=== PATIENT | male | born 1995 | race Caucasian/White ===

== ENCOUNTER 2020-05-20 17:19 | Emergency (ER) | payer SELFPAY ==
[2020-05-20 17:33] VITALS: BP 133/84; PULSE 87; O2SAT 100
--- NOTE | 2020-05-20 17:42 | ERPHSYRPT ---
- History of Present Illness Time Seen by Provider: 05/20/20 17:30 Source: patient Exam Limitations: no limitations Patient Subjective Stated Complaint: pt reports visual and auditory hallucinations beginning approx 2 weeks ago, reports that he has bad thoughts, states he has insecurities that he thinks of often. pt reports that he keeps hearing the word "retard" in his head all day. pt also reports that he also sees a lot of "weird creepy shit, sometimes bugs" that he knows are not there. pt denies any suicidal or homicidal thoughts at this time. Triage Nursing Assessment: pt is aox3, tearful upon exam, pt covering face with his hands at this time, pt not forthcoming with answering questions of this nurse and doctor, pt afebrile, pt resps easy and non labored, cap refill < 3 seconds, radial pulses strong and equal, pt skin pink warm dry. Physician History: Patient is a 24-year-old male presents to our ED via EMS for evaluation of visual and auditory hallucinations. Symptoms started approximately 2 weeks ago. Symptoms have been ongoing. Patient states he feels insecure. Patient's visual hallucinations include seeing bugs. Patient states "I see creepy shit". There are specifics regarding the visual hallucinations. Patient states he hears a voice in his head saying "retarded". Patient denies homicidal suicidal ideation. Patient smokes marijuana denies other illicit drug use. Patient quit high school in his stacy year. Patient is unemployed. He lives with his parents. Patient states he plays video games in his spare time. Patient answers questions. However he is somewhat tearful. Patient puts his hands at his head presumably to cover his tears. Patient denies pain. No nausea no vomiting. No diarrhea. No rash. No fevers. Symptoms are mild to moderate in intensity. No specific worsening or improving factors. Patient voices no other complaints or concerns at this time. Timing/Duration: week(s) (2 weeks) Severity of Symptoms-Max: moderate Severity of Symptoms-Current: moderate Context related to: other Suicidal thoughts: other (Patient denies suicidal thoughts. No history of suicide per patient.) Associated Symptoms: denies symptoms, frustrated, hallucinating, No confused, No ingestion, No insomnia, No suicidal ideation Allergies/Adverse Reactions: No Known Drug Allergies Allergy (Verified 05/20/20 17:33) Hx Tetanus, Diphtheria Vaccination/Date Given: Yes Hx Influenza Vaccination/Date Given: No Hx Pneumococcal Vaccination/Date Given: No Immunizations Up to Date: Yes Travel Risk - International Travel Have you traveled outside of the country in past 3 weeks: No - Coronavirus Screening Are you exhibiting any of the following symptoms?: No Close contact with a COVID-19 positive Pt in past 14-21 Days: No - Past Medical History Pertinent Past Medical History: Yes GI Medical History: Hepatitis Psycho-Social History: Anxiety, Bipolar, Depression, Other Other Medical History: "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 - Past Surgical History Past Surgical History: No Other Surgical History: RT THUMB DISLOCATION/FX - Social History Smoking Status: Current every day smoker Exposure to second hand smoke: Yes Drug Use: none Patient Lives Alone: No - Review of Systems Constitutional: No Symptoms, No Fever, No Chills Eyes: No Symptoms Ears, Nose, & Throat: No Symptoms Respiratory: No Symptoms, No Cough, No Dyspnea Cardiac: No Symptoms, No Chest Pain, No Edema, No Syncope Abdominal/Gastrointestinal: No Symptoms, No Abdominal Pain, No Nausea, No Vomiting, No Diarrhea Genitourinary Symptoms: No Symptoms, No Dysuria Musculoskeletal: No Symptoms, No Back Pain, No Neck Pain Skin: No Symptoms, No Rash Neurological: No Symptoms, No Dizziness, No Focal Weakness, No Sensory Changes Psychological: No Symptoms Endocrine: No Symptoms Hematologic/Lymphatic: No Symptoms Immunological/Allergic: No Symptoms All Other Systems: Reviewed and Negative - Nursing Vital Signs Nursing Vital Signs: Initial Vital Signs Temperature 98.6 F 05/20/20 17:20 Pulse Rate 87 05/20/20 17:20 Respiratory Rate 20 05/20/20 17:20 Blood Pressure 133/84 05/20/20 17:20 O2 Sat by Pulse Oximetry 100 05/20/20 17:20 Pain Scale Pain Intensity 0 - Physical Exam General Appearance: no apparent distress Eyes, Ears, Nose, Throat Exam: normal ENT inspection, moist mucous membranes Neck Exam: normal inspection, non-tender, supple Respiratory Exam: normal breath sounds, lungs clear, No respiratory distress Cardiovascular Exam: regular rate/rhythm, No edema Gastrointestinal/Abdominal Exam: soft, No tenderness, No distention Extremities Exam: normal inspection, normal range of motion, No evidence of injury, No edema Current Suicidality: denies suicide plan Neurological Exam: alert, technology program manager II-XII nml as tested, oriented x 3 Behavior/Eye Contact/Speech: alert & cooperative, cooperative, normal speech, avoids eye contact Thoughts/Hallucinations: normal thought pattern, auditory hallucinations (Patient voices auditory hallucinations. Patient hears voices calling him "retired". Patient also sees nonspecific observance is such as things flying around his visual field.) Skin Exam: normal color, warm, dry, No rash SpO2 Interpretation: normal SpO2: 100 O2 Delivery: Room Air - Course Nursing assessment & vital signs reviewed: Yes Ordered Tests: Active Orders 24 hr Category Date Time Status ACETAMINOPHEN Stat Lab 05/20/20 17:23 Ordered CBC W DIFF Stat Lab 05/20/20 17:23 Ordered CMP Stat Lab 05/20/20 17:23 Ordered ETHYL ALCOHOL Stat Lab 05/20/20 17:23 Ordered SALICYLATE Stat Lab 05/20/20 17:23 Ordered UA W/RFX UR CULTURE Stat Lab 05/20/20 17:24 Uncollected Urine Triage Profile Stat Lab 05/20/20 17:24 Uncollected - Progress Progress: unchanged Progress Note: 05/20/20 17:42 Patient has a history of hepatitis. He refused a work-up. Patient does not want any blood drawn. We explained that we must rule out organic cause for his symptoms before we can provide him with psychiatric care. Patient refused. Patient now declining work-up. Patient states he just wants to go home. Patient requested that we call his mother. Patient refusing care. We will discharge patient AGAINST MEDICAL ADVICE. Patient continues to deny homicidal suicidal ideation. Patient is of sound mind. He understands that leaving AGAINST MEDICAL ADVICE can result in delayed diagnosis, will worsening symptoms, increased risk of morbidity, mortality, short and long-term disability including . In spite of his risks patient has decided to leave AGAINST MEDICAL ADVICE. An AMA form was signed accordingly. Patient understand that he may return to our ED at any time for further evaluation and treatment. Patient will call his family doctor within 48 hours for reevaluation. Counseled pt/family regarding: need for follow-up - Departure Departure Disposition: AMA Clinical Impression: Auditory hallucinations, Visual hallucinations Condition: Stable Critical Care Time: No
== END 2020-05-20 17:50 | disposition left against medical advice (07) ==
LOC: ED 17:19
DX: R44.0 Auditory hallucinations (principal); R44.1 Visual hallucinations
CPT/HCPCS: 99284

== ENCOUNTER 2020-11-16 05:35 | Observation (INO) | payer OTHER ==
[2020-11-16] MEDS ORDERED: Ativan 2 MG/1 ML VIAL ONE ×4 (05:56→07:22)
[2020-11-16] MEDS ORDERED: TYLENOL 325 MG ONE (05:57)
[2020-11-16] MEDS ORDERED: Sodium Chloride 0.9% 1000 ML 1,000 ML ONE ×2 (05:57→06:49)
--- NOTE | 2020-11-16 06:04 | ERPHSYRPT ---
- History of Present Illness Source: patient, police Exam Limitations: clinical condition, intoxication Timing/Duration: today Severity of Symptoms-Max: moderate Severity of Symptoms-Current: moderate Suicidal thoughts: ingestion Associated Symptoms: agitated, hallucinating, ingestion, paranoid Previous symptoms: no recent treatment Hx Tetanus, Diphtheria Vaccination/Date Given: Yes Hx Influenza Vaccination/Date Given: No Hx Pneumococcal Vaccination/Date Given: No <CATRACHITO VU - Last Filed: 11/16/20 06:52> <KESHAV BUCHANAN - Last Filed: 11/19/20 01:14> - History of Present Illness Time Seen by Provider: 11/16/20 05:45 Physician History: This Is a 25-year-old white male who was brought in by law enforcement for evaluation. Patient was running in and out of traffic. He left his car parked with a hazard lights in the middle of the road. 911 was called by a passerby. Law enforcement arrived. Patient was hallucinating paranoid. He did admitted to using methamphetamines yesterday. He used alcohol and marijuana today. Patient was agitated and could not sit still. He has calm down a bit upon arrival emergency department by law enforcement. Patient complains of some chest pain. Patient states that his family was kidnapped and was concerned they were taken on a railroad tracks and he was running up and down the railroad tracks as well. Patient arrives with fever of over 102.8 F. He states that he has not had a cough. He has no dysuria. He has no abdominal pain. He has had no nausea or vomiting. Patient is not on any prescription medication at this time but was taking medication for schizophrenia in the past. (CATRACHITO VU) Allergies/Adverse Reactions: olanzapine Adverse Reaction (Verified 11/16/20 06:07) Home Medications: No Reportable Medications [No Reported Medications] 11/16/20 [History] Travel Risk - International Travel Have you traveled outside of the country in past 3 weeks: No - Coronavirus Screening Are you exhibiting any of the following symptoms?: No Close contact with a COVID-19 positive Pt in past 14-21 Days: No - Vaccine Status Have you recieved a Covid-19 vaccination: No <CATRACHITO VU - Last Filed: 11/16/20 06:52> - Past Medical History Pertinent Past Medical History: Yes Neurological History: No Pertinent History ENT History: No Pertinent History Cardiac History: No Pertinent History Respiratory History: No Pertinent History Endocrine Medical History: No Pertinent History Musculoskeletal History: No Pertinent History GI Medical History: Hepatitis Psycho-Social History: Anxiety, Bipolar, Depression, Other Other Medical History: "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 Hep C, r/t pre vious IV drug use, pt has been treated for hepatitis. - Past Surgical History Past Surgical History: No Neuro Surgical History: No Pertinent History Cardiac: No Pertinent History Respiratory: No Pertinent History Gastrointestinal: No Pertinent History Genitourinary: No Pertinent History Musculoskeletal: No Pertinent History Other Surgical History: RT THUMB DISLOCATION/FX - Social History Smoking Status: Current every day smoker Exposure to second hand smoke: Yes Drug Use: none Patient Lives Alone: No <CATRACHITO VU - Last Filed: 11/16/20 06:52> - Review of Systems Constitutional: No Symptoms Eyes: No Symptoms Ears, Nose, & Throat: No Symptoms Respiratory: No Symptoms Cardiac: Chest Pain, Palpitations Abdominal/Gastrointestinal: No Symptoms Genitourinary Symptoms: No Symptoms Musculoskeletal: No Symptoms Skin: No Symptoms Neurological: No Symptoms Psychological: Drug Abuse, Anxiety, Emotional Lability, Hallucinations, Mood Changes, No Suicidal Ideations, No Homicidal Ideations Endocrine: No Symptoms Hematologic/Lymphatic: No Symptoms Immunological/Allergic: No Symptoms All Other Systems: Reviewed and Negative <CATRACHITO VU - Last Filed: 11/16/20 06:52> - Physical Exam General Appearance: alert, anxiety Eyes, Ears, Nose, Throat Exam: normal ENT inspection, moist mucous membranes Neck Exam: normal inspection, non-tender, supple, full range of motion Respiratory Exam: normal breath sounds, lungs clear, No chest tenderness, No respiratory distress Cardiovascular Exam: tachycardia Gastrointestinal/Abdominal Exam: soft, normal bowel sounds, No tenderness Extremities Exam: normal inspection, normal range of motion, No evidence of injury Current Suicidality: denies suicide plan Neurological Exam: alert, telephone order clerk II-XII nml as tested, agitated, anxious Appearance: disheveled, impaired insight Behavior/Eye Contact/Speech: alert & cooperative, avoids eye contact, intoxicated appearance Thoughts/Hallucinations: paranoid, visual hallucinations Skin Exam: normal color, warm, dry SpO2 Interpretation: normal O2 Delivery: Room Air <CATRACHITO VU - Last Filed: 11/16/20 06:52> - Nursing Vital Signs Nursing Vital Signs: Initial Vital Signs Temperature 102.8 F 11/16/20 05:38 Pulse Rate 117 H 11/16/20 05:38 Respiratory Rate 20 11/16/20 05:38 Blood Pressure 155/93 11/16/20 05:38 O2 Sat by Pulse Oximetry 97 11/16/20 05:38 Pain Scale Pain Intensity 0 - Course Nursing assessment & vital signs reviewed: Yes EKG Interpreted by Me: RATE ([id number]), Sinus Tach, NORMAL AXIS, NORMAL INTERVALS, NORMAL QRS, Other (No acute ischemic changes. No comparison EKG.) <CATRACHITO VU - Last Filed: 11/16/20 06:52> - Radiology Exams Chest X-ray Interpretation: Teleradiologist Report (Inflated and clear lungs. Heart is not enlarged. Bony thorax intact. No new or acute findings.) - CT Exams Chest CT Interpretation: Tele-radiologist Report (Negative for pulmonary embolus.) <KESHAV BUCHANAN - Last Filed: 11/19/20 01:14> Ordered Tests: Active Orders 24 hr Category Date Time Status CK (IN-HOUSE) [CK-Creatinine Phosphokinase] AM.LAB Lab 11/18/20 06:37 Completed Medication Summary Discontinued Medications Generic Name Dose Route Start Last Admin Trade Name Freq PRN Reason Stop Dose Admin Acetaminophen Confirm 11/16/20 05:57 Tylenol 325 Mg Administered 11/16/20 05:58 Dose 650 mg .ROUTE .STK-MED ONE Acetaminophen 650 mg 11/16/20 06:08 11/16/20 06:10 Tylenol 325 Mg PO 11/16/20 06:09 650 mg STAT STA Administration Acetaminophen 650 mg 11/16/20 12:18 Tylenol 325 Mg PO 12/16/20 12:17 Q4H PRN PRN PAIN AND/OR FEVER Diphenhydramine HCl 25 mg 11/16/20 13:54 11/17/20 18:35 Benadryl 50 Mg/Ml IV 12/16/20 13:53 25 mg Q4H PRN PRN Administration Haloperidol Lactate 5 mg 11/16/20 13:47 11/17/20 18:36 Haldol 5 Mg IM 12/16/20 13:46 5 mg Q4H PRN PRN Administration AGITATION Sodium Chloride Confirm 11/16/20 05:57 Sodium Chloride 0.9% 1000 Ml Administered 11/16/20 05:58 Dose 1,000 mls @ ud .ROUTE .STK-MED ONE Sodium Chloride 1,000 mls @ 999 mls/hr 11/16/20 06:07 11/16/20 07:05 Sodium Chloride 0.9% 1000 Ml IV 11/16/20 07:07 Infused .Q1H1M STA Infusion Sodium Chloride 1,000 mls @ 999 mls/hr 11/16/20 06:49 11/16/20 07:56 Sodium Chloride 0.9% 1000 Ml IV 11/16/20 07:49 Infused .Q1H1M STA Infusion Sodium Chloride Confirm 11/16/20 06:49 Sodium Chloride 0.9% 1000 Ml Administered 11/16/20 06:50 Dose 1,000 mls @ ud .ROUTE .STK-MED ONE Sodium Chloride 1,000 mls @ 100 mls/hr 11/16/20 12:18 11/18/20 10:51 Sodium Chloride 0.9% 1000 Ml IV 12/16/20 12:17 100 mls/hr .Q10H RENETTA Administration Lorazepam Confirm 11/16/20 05:56 Ativan 2 Mg/1 Ml Vial Administered 11/16/20 05:57 Dose 2 mg .ROUTE .STK-MED ONE Lorazepam Confirm 11/16/20 05:58 Ativan 2 Mg/1 Ml Vial Administered 11/16/20 05:59 Dose 2 mg .ROUTE .STK-MED ONE Lorazepam 2 mg 11/16/20 06:07 11/16/20 06:11 Ativan 2 Mg/1 Ml Vial IV 11/16/20 06:08 2 mg STAT ONE Administration Lorazepam Confirm 11/16/20 06:15 Ativan 2 Mg/1 Ml Vial Administered 11/16/20 06:16 Dose 2 mg .ROUTE .STK-MED ONE Lorazepam 2 mg 11/16/20 07:19 11/16/20 07:23 Ativan 2 Mg/1 Ml Vial IV 11/16/20 07:20 2 mg STAT ONE Administration Lorazepam Confirm 11/16/20 07:22 Ativan 2 Mg/1 Ml Vial Administered 11/16/20 07:23 Dose 2 mg .ROUTE .STK-MED ONE Lorazepam 1 mg 11/16/20 13:45 11/17/20 18:22 Ativan 2 Mg/1 Ml Vial IV 12/16/20 13:44 1 mg Q2H PRN PRN Administration CIWA SCORE Nicotine 21 mg 11/17/20 18:45 11/17/20 18:37 Nicoderm Cq 21 Mg TOP 12/17/20 18:44 21 mg Q24H RENETTA Administration Potassium Chloride 10 meq 11/16/20 06:45 11/16/20 06:50 Klor Con 10 Meq PO 11/16/20 06:46 10 meq STAT ONE Administration Potassium Chloride Confirm 11/16/20 06:48 Klor Con 10 Meq Administered 11/16/20 06:49 Dose 10 meq PO .STK-MED ONE Lab/Rad Data: Laboratory Result Diagrams 11/16/20 06:00 11/16/20 06:00 Laboratory Results 11/16/20 11/16/20 11/16/20 Range/Units 10:20 07:00 06:52 WBC (4.0-10.5) K/mm3 RBC (4.1-5.6) M/mm3 Hgb (12.5-18.0) gm/dl Hct (42-50) % MCV (78-100) fl MCH (26-32) pg MCHC (32-36) g/dl RDW (11.5-14.0) % Plt Count (150-450) K/mm3 MPV (7.5-11.0) fl Gran % (36.0-66.0) % Eos # (Auto) (0-0.5) Absolute Lymphs (auto) (1.0-4.6) Absolute Monos (auto) (0.0-1.3) Lymphocytes % (24.0-44.0) % Monocytes % (0.0-12.0) % Eosinophils % (0.00-5.0) % Basophils % (0.0-0.4) % Absolute Granulocytes (1.4-6.9) Basophils # (0-0.4) D-Dimer (215-500) ng/mL Sodium (137-145) mmol/L Potassium (3.5-5.1) mmol/L Chloride (98-107) mmol/L Carbon Dioxide (22-30) mmol/L Anion Gap (5-15) MEQ/L BUN (9-20) mg/dL Creatinine (0.66-1.25) mg/dL Estimated GFR ML/MIN Glucose (74-106) mg/dL Calcium (8.4-10.2) mg/dL Total Bilirubin (0.2-1.3) mg/dL AST (17-59) U/L ALT (0-50) U/L Alkaline Phosphatase (38-126) U/L Creatine Kinase (55-170) U/L Troponin I < 0.012 (0.000-0.034) ng/mL Serum Total Protein (6.3-8.2) g/dL Albumin (3.5-5.0) g/dL TSH 3rd Generation (0.47-4.68) mIU/L Urine Color (YELLOW) Urine Appearance (CLEAR) Urine pH (5-6) Ur Specific Souris (1.005-1.025) Urine Protein (Negative) Urine Ketones (NEGATIVE) Urine Blood (0-5) Chris/ul Urine Nitrite (NEGATIVE) Urine Bilirubin (NEGATIVE) Urine Urobilinogen (0-1) mg/dL Ur Leukocyte Esterase (NEGATIVE) Urine WBC (Auto) (0-5) /HPF Urine RBC (Auto) (0-2) /HPF U Epithel Cells (Auto) (FEW) /HPF Urine Bacteria (Auto) (NEGATIVE) /HPF Amorphous Crystals (NEGATIVE) /HPF Urine Mucus (Auto) (NEGATIVE) /HPF Urine Culture Reflexed (NO) Urine Glucose (NEGATIVE) mg/dL Salicylates (2-20) mg/dL Urine Opiates Level (NEGATIVE) Ur Methadone (NEGATIVE) Acetaminophen (10-30) ug/ml Urine Barbiturates (NEGATIVE) Ur Phencyclidine (PCP) (NEGATIVE) Urine Amphetamine (NEGATIVE) U Benzodiazepine Level (NEGATIVE) Urine Cocaine (NEGATIVE) Urine Marijuana (THC) (NEGATIVE) Ethyl Alcohol (0-10) mg/dL Monoscreen (Negative) Influenza Type A Ag NEGATIVE (NEGATIVE) Influenza Type B Ag NEGATIVE (NEGATIVE) RSV (PCR) NEGATIVE (Negative) SARS-CoV-2 (PCR) NEGATIVE (NEGATIVE) Group A Strep Antibody NOT DETECTED (NEGATIVE) 11/16/20 11/16/20 11/16/20 Range/Units 06:52 06:12 06:12 WBC (4.0-10.5) K/mm3 RBC (4.1-5.6) M/mm3 Hgb (12.5-18.0) gm/dl Hct (42-50) % MCV (78-100) fl MCH (26-32) pg MCHC (32-36) g/dl RDW (11.5-14.0) % Plt Count (150-450) K/mm3 MPV (7.5-11.0) fl Gran % (36.0-66.0) % Eos # (Auto) (0-0.5) Absolute Lymphs (auto) (1.0-4.6) Absolute Monos (auto) (0.0-1.3) Lymphocytes % (24.0-44.0) % Monocytes % (0.0-12.0) % Eosinophils % (0.00-5.0) % Basophils % (0.0-0.4) % Absolute Granulocytes (1.4-6.9) Basophils # (0-0.4) D-Dimer (215-500) ng/mL Sodium (137-145) mmol/L Potassium (3.5-5.1) mmol/L Chloride (98-107) mmol/L Carbon Dioxide (22-30) mmol/L Anion Gap (5-15) MEQ/L BUN (9-20) mg/dL Creatinine (0.66-1.25) mg/dL Estimated GFR ML/MIN Glucose (74-106) mg/dL Calcium (8.4-10.2) mg/dL Total Bilirubin (0.2-1.3) mg/dL AST (17-59) U/L ALT (0-50) U/L Alkaline Phosphatase (38-126) U/L Creatine Kinase (55-170) U/L Troponin I (0.000-0.034) ng/mL Serum Total Protein (6.3-8.2) g/dL Albumin (3.5-5.0) g/dL TSH 3rd Generation (0.47-4.68) mIU/L Urine Color [place] (YELLOW) Urine Appearance CLOUDY (CLEAR) Urine pH 7.0 (5-6) Ur Specific Souris 1.018 (1.005-1.025) Urine Protein 30 (Negative) Urine Ketones NEGATIVE (NEGATIVE) Urine Blood NEGATIVE (0-5) Chris/ul Urine Nitrite NEGATIVE (NEGATIVE) Urine Bilirubin NEGATIVE (NEGATIVE) Urine Urobilinogen 2 (0-1) mg/dL Ur Leukocyte Esterase NEGATIVE (NEGATIVE) Urine WBC (Auto) 0-2 (0-5) /HPF Urine RBC (Auto) NONE (0-2) /HPF U Epithel Cells (Auto) NONE (FEW) /HPF Urine Bacteria (Auto) RARE (NEGATIVE) /HPF Amorphous Crystals MODERATE (NEGATIVE) /HPF Urine Mucus (Auto) MODERATE (NEGATIVE) /HPF Urine Culture Reflexed NO (NO) Urine Glucose NEGATIVE (NEGATIVE) mg/dL Salicylates (2-20) mg/dL Urine Opiates Level NEGATIVE (NEGATIVE) Ur Methadone NEGATIVE (NEGATIVE) Acetaminophen (10-30) ug/ml Urine Barbiturates NEGATIVE (NEGATIVE) Ur Phencyclidine (PCP) NEGATIVE (NEGATIVE) Urine Amphetamine POSITIVE (NEGATIVE) U Benzodiazepine Level NEGATIVE (NEGATIVE) Urine Cocaine NEGATIVE (NEGATIVE) Urine Marijuana (THC) POSITIVE (NEGATIVE) Ethyl Alcohol (0-10) mg/dL Monoscreen (Negative) Influenza Type A Ag NEGATIVE (NEGATIVE) Influenza Type B Ag NEGATIVE (NEGATIVE) RSV (PCR) (Negative) SARS-CoV-2 (PCR) (NEGATIVE) Group A Strep Antibody (NEGATIVE) 11/16/20 11/16/20 11/16/20 Range/Units 06:00 06:00 06:00 WBC (4.0-10.5) K/mm3 RBC (4.1-5.6) M/mm3 Hgb (12.5-18.0) gm/dl Hct (42-50) % MCV (78-100) fl MCH (26-32) pg MCHC (32-36) g/dl RDW (11.5-14.0) % Plt Count (150-450) K/mm3 MPV (7.5-11.0) fl Gran % (36.0-66.0) % Eos # (Auto) (0-0.5) Absolute Lymphs (auto) (1.0-4.6) Absolute Monos (auto) (0.0-1.3) Lymphocytes % (24.0-44.0) % Monocytes % (0.0-12.0) % Eosinophils % (0.00-5.0) % Basophils % (0.0-0.4) % Absolute Granulocytes (1.4-6.9) Basophils # (0-0.4) D-Dimer 657 H* (215-500) ng/mL Sodium (137-145) mmol/L Potassium (3.5-5.1) mmol/L Chloride (98-107) mmol/L Carbon Dioxide (22-30) mmol/L Anion Gap (5-15) MEQ/L BUN (9-20) mg/dL Creatinine (0.66-1.25) mg/dL Estimated GFR ML/MIN Glucose (74-106) mg/dL Calcium (8.4-10.2) mg/dL Total Bilirubin (0.2-1.3) mg/dL AST (17-59) U/L ALT (0-50) U/L Alkaline Phosphatase (38-126) U/L Creatine Kinase 387 H (55-170) U/L Troponin I < 0.012 (0.000-0.034) ng/mL Serum Total Protein (6.3-8.2) g/dL Albumin (3.5-5.0) g/dL TSH 3rd Generation 2.230 (0.47-4.68) mIU/L Urine Color (YELLOW) Urine Appearance (CLEAR) Urine pH (5-6) Ur Specific Souris (1.005-1.025) Urine Protein (Negative) Urine Ketones (NEGATIVE) Urine Blood (0-5) Chris/ul Urine Nitrite (NEGATIVE) Urine Bilirubin (NEGATIVE) Urine Urobilinogen (0-1) mg/dL Ur Leukocyte Esterase (NEGATIVE) Urine WBC (Auto) (0-5) /HPF Urine RBC (Auto) (0-2) /HPF U Epithel Cells (Auto) (FEW) /HPF Urine Bacteria (Auto) (NEGATIVE) /HPF Amorphous Crystals (NEGATIVE) /HPF Urine Mucus (Auto) (NEGATIVE) /HPF Urine Culture Reflexed (NO) Urine Glucose (NEGATIVE) mg/dL Salicylates (2-20) mg/dL Urine Opiates Level (NEGATIVE) Ur Methadone (NEGATIVE) Acetaminophen (10-30) ug/ml Urine Barbiturates (NEGATIVE) Ur Phencyclidine (PCP) (NEGATIVE) Urine Amphetamine (NEGATIVE) U Benzodiazepine Level (NEGATIVE) Urine Cocaine (NEGATIVE) Urine Marijuana (THC) (NEGATIVE) Ethyl Alcohol (0-10) mg/dL Monoscreen NEGATIVE (Negative) Influenza Type A Ag (NEGATIVE) Influenza Type B Ag (NEGATIVE) RSV (PCR) (Negative) SARS-CoV-2 (PCR) (NEGATIVE) Group A Strep Antibody (NEGATIVE) 11/16/20 11/16/20 Range/Units 06:00 06:00 WBC 10.3 (4.0-10.5) K/mm3 RBC 4.85 (4.1-5.6) M/mm3 Hgb 14.3 (12.5-18.0) gm/dl Hct 41.7 L (42-50) % MCV 86.0 (78-100) fl MCH 29.5 (26-32) pg MCHC 34.3 (32-36) g/dl RDW 12.2 (11.5-14.0) % Plt Count 228 (150-450) K/mm3 MPV 10.2 (7.5-11.0) fl Gran % 79.4 H (36.0-66.0) % Eos # (Auto) 0.02 (0-0.5) Absolute Lymphs (auto) 1.08 (1.0-4.6) Absolute Monos (auto) 1.00 (0.0-1.3) Lymphocytes % 10.4 L (24.0-44.0) % Monocytes % 9.7 (0.0-12.0) % Eosinophils % 0.2 (0.00-5.0) % Basophils % 0.3 (0.0-0.4) % Absolute Granulocytes 8.21 H (1.4-6.9) Basophils # 0.03 (0-0.4) D-Dimer (215-500) ng/mL Sodium 141 (137-145) mmol/L Potassium 3.1 L (3.5-5.1) mmol/L Chloride 99 (98-107) mmol/L Carbon Dioxide 27 (22-30) mmol/L Anion Gap 18.3 H (5-15) MEQ/L BUN 12 (9-20) mg/dL Creatinine 1.11 (0.66-1.25) mg/dL Estimated GFR > 60.0 ML/MIN Glucose 91 (74-106) mg/dL Calcium 9.7 (8.4-10.2) mg/dL Total Bilirubin 0.80 (0.2-1.3) mg/dL AST 37 (17-59) U/L ALT 19 (0-50) U/L Alkaline Phosphatase 68 (38-126) U/L Creatine Kinase (55-170) U/L Troponin I (0.000-0.034) ng/mL Serum Total Protein 8.5 H (6.3-8.2) g/dL Albumin 5.0 (3.5-5.0) g/dL TSH 3rd Generation (0.47-4.68) mIU/L Urine Color (YELLOW) Urine Appearance (CLEAR) Urine pH (5-6) Ur Specific Souris (1.005-1.025) Urine Protein (Negative) Urine Ketones (NEGATIVE) Urine Blood (0-5) Chris/ul Urine Nitrite (NEGATIVE) Urine Bilirubin (NEGATIVE) Urine Urobilinogen (0-1) mg/dL Ur Leukocyte Esterase (NEGATIVE) Urine WBC (Auto) (0-5) /HPF Urine RBC (Auto) (0-2) /HPF U Epithel Cells (Auto) (FEW) /HPF Urine Bacteria (Auto) (NEGATIVE) /HPF Amorphous Crystals (NEGATIVE) /HPF Urine Mucus (Auto) (NEGATIVE) /HPF Urine Culture Reflexed (NO) Urine Glucose (NEGATIVE) mg/dL Salicylates < 1.0 L (2-20) mg/dL Urine Opiates Level (NEGATIVE) Ur Methadone (NEGATIVE) Acetaminophen < 10 L (10-30) ug/ml Urine Barbiturates (NEGATIVE) Ur Phencyclidine (PCP) (NEGATIVE) Urine Amphetamine (NEGATIVE) U Benzodiazepine Level (NEGATIVE) Urine Cocaine (NEGATIVE) Urine Marijuana (THC) (NEGATIVE) Ethyl Alcohol < 10 (0-10) mg/dL Monoscreen (Negative) Influenza Type A Ag (NEGATIVE) Influenza Type B Ag (NEGATIVE) RSV (PCR) (Negative) SARS-CoV-2 (PCR) (NEGATIVE) Group A Strep Antibody (NEGATIVE) - Progress Progress: improved Counseled pt/family regarding: lab results, diagnosis <CATRACHITO VU - Last Filed: 11/16/20 06:52> <KESHAV BUCHANAN - Last Filed: 11/19/20 01:14> - Progress Progress Note: 11/16/20 06:53 Transfer of care to Dr. Keshav Buchanan at shift change. Patient will be evaluated by mental health services. Final disposition per Dr. Keshav Buchanan. (CATRACHITO VU) Patient endorsed to Dr. Buchanan at approximately 7 AM. Patient will be admitted to the floor for medical clearance prior to psych transfer. Case discussed with Dr. Talamantes who accepts admission to observation. Patient transferred to the floor in stable condition. Patient voices no other complaints or concerns at this time. 11/19/20 01:13 (KESHAV BUCHANAN) - Departure Departure Disposition: Transfer Critical Care Time: No <CATRACHITO VU - Last Filed: 11/16/20 06:52> - Departure Departure Disposition: Observation <KESHAV BUCHANAN - Last Filed: 11/19/20 01:14> - Departure Clinical Impression: Fever, Hallucinations, Drug abuse, Paranoid behavior, Hypokalemia, Tachycardia, Polysubstance abuse, Non compliance w medication regimen Condition: Stable
[2020-11-16] MEDS ORDERED: Ativan 2 MG/1 ML VIAL IV ONE ×2 (06:07→07:19)
[2020-11-16] MEDS ORDERED: Sodium Chloride 0.9% 1000 ML 1,000 ML IV STA ×2 (06:07→06:49)
[2020-11-16] MEDS ORDERED: TYLENOL 325 MG PO STA (06:08)
[2020-11-16 06:19] LABS: Absolute Neutrophil Ct (ANC) 8.21 (1.4-6.9); BASOPHIL % 0.3 % (0.0-0.4); Basophil (Absolute #) 0.03 (0-0.4); Eosinophil % 0.2 % (0.00-5.0); Eosinophil (Absolute #) 0.02 (0-0.5); Hematocrit 41.7 % (42-50); Hemoglobin 14.3 gm/dl (12.5-18.0); Lymphocyte (Absolute #) 1.08 (1.0-4.6); Lymphocytes % 10.4 % (24.0-44.0); Mean Corpuscular Hemoglobin 29.5 pg (26-32); Mean Corpuscular Hgb Concent. 34.3 g/dl (32-36); Mean Platelet Volume 10.2 fl (7.5-11.0); Monocytes % 9.7 % (0.0-12.0); Neutrophil % 79.4 % (36.0-66.0); Platelet Count 228 K/mm3 (150-450); Red Blood Count 4.85 M/mm3 (4.1-5.6); Red Cell Distribution Width 12.2 % (11.5-14.0); White Blood Count 10.3 K/mm3 (4.0-10.5)
[2020-11-16 06:30] LABS: Amourphous Crystal MODERATE /HPF (NEGATIVE); Appearance CLOUDY (CLEAR); Bacteria RARE /HPF (NEGATIVE); Bilirubin NEGATIVE (NEGATIVE); Blood NEGATIVE Ery/ul (0-5); Glucose NEGATIVE (NEGATIVE); Ketones NEGATIVE (NEGATIVE); Leukocyte Esterase NEGATIVE (NEGATIVE); Mucus MODERATE /HPF (NEGATIVE); Nitrite NEGATIVE (NEGATIVE); Protein,Urine Dip 30 (Negative); Specific Gravity 1.018 (1.005-1.025); Urobilinogen 2 mg/dL (0-1); WBC 0-2 /HPF (0-5)
[2020-11-16 06:40] LABS: ACETAMINOPHEN < 10 ug/ml (10-30); ALKALINE PHOSPHATASE 68 U/L (38-126); ANION GAP 18.3 MEQ/L (5-15); BLOOD UREA NITROGEN 12 mg/dL (9-20); CHLORIDE 99 mmol/L (98-107); Calcium 9.7 mg/dL (8.4-10.2); Carbon Dioxide 27 mmol/L (22-30); Creatinine 1 1.11 mg/dL (0.66-1.25); EST GLOMERULAR FILTRATION RATE > 60.0 ML/MIN; ETHYL ALCOHOL < 10 mg/dL (0-10); Glucose 91 mg/dL (74-106); Potassium 3.1 mmol/L (3.5-5.1); SALICYLATE < 1.0 mg/dL (2-20); SGOT/AST 37 U/L (17-59); SGPT/ALT 19 U/L (0-50); SODIUM 141 mmol/L (137-145); Total Protein 8.5 g/dL (6.3-8.2)
[2020-11-16] MEDS ORDERED: Klor Con 10 MEQ PO ONE ×2 (06:45→06:48)
[2020-11-16 06:49] LABS: Barbiturate,Urine NEGATIVE (NEGATIVE); Benzodiazepine,Urine NEGATIVE (NEGATIVE); Cocaine,Urine NEGATIVE (NEGATIVE); Methadone,Urine NEGATIVE (NEGATIVE); Opiate,Urine NEGATIVE (NEGATIVE); PCP,Urine NEGATIVE (NEGATIVE); THC,Urine POSITIVE (NEGATIVE)
[2020-11-16 07:27] LABS: INFLUENZA A NEGATIVE (NEGATIVE); INFLUENZA B NEGATIVE (NEGATIVE)
[2020-11-16 07:34] LABS: Amphetamine,Urine POSITIVE (NEGATIVE)
[2020-11-16 07:59] LABS: CK-Creatinine Phosphokinase 387 U/L (55-170); TROPONIN < 0.012 ng/mL (0.000-0.034)
--- NOTE | 2020-11-16 08:46 | XRAY ---
Indication: Fever. Chest pain. Comparison: November 01, 2013. Portable chest again hyperinflated and clear. Heart is not enlarged. Bony thorax intact. No new/acute findings.
--- NOTE | 2020-11-16 09:28 | XRAY ---
Indication: Chest pain. Elevated d-dimer. Unresponsive. Multiple contiguous images obtained through the chest using 100 cc Isovue 370 contrast and PE protocol. Comparison: None There is good opacification of the pulmonary arteries to include the lobar and segmental branches. Mild respiration artifact limits evaluation of the more distal segmental branches. No central pulmonary embolus. Heart is not enlarged. Aorta is normal in course and caliber. No pathologic mediastinal/hilar lymphadenopathy. Lungs demonstrate mild bilateral dependent atelectasis and minimal right apical subpleural cystic changes. No suspicious pulmonary mass, infiltrate, consolidation, or effusion. Bony thorax intact. Limited upper abdomen unremarkable. Impression: 1. Respiration artifact limits pulmonary embolus evaluation. 2. No central pulmonary embolus or acute cardiopulmonary abnormalities.
[2020-11-16 10:26] LABS: INFLUENZA A NEGATIVE (NEGATIVE); INFLUENZA B NEGATIVE (NEGATIVE); RESPIRATORY SYNCTIAL VIRUS NEGATIVE (Negative)
[2020-11-16] MEDS ORDERED: TYLENOL 325 MG PO PRN (12:18)
[2020-11-16] MEDS: Sodium Chloride 0.9% 1000 ML 1,000 ML IV SCH (13:34)
[2020-11-16] MEDS ORDERED: BENADRYL 50 MG/ML IV PRN (13:54)
[2020-11-16] MEDS: Ativan 2 MG/1 ML VIAL IV PRN ×5 (14:01→23:44)
[2020-11-16] MEDS: Haldol 5 MG IM PRN (14:48)
[2020-11-17] MEDS: Ativan 2 MG/1 ML VIAL IV PRN ×7 (01:54→18:22)
[2020-11-17] MEDS: Sodium Chloride 0.9% 1000 ML 1,000 ML IV SCH ×6 (05:27→22:56)
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
[2020-11-17 09:02] LABS: Absolute Neutrophil Ct (ANC) 1.79 (1.4-6.9); BASOPHIL % 0.5 % (0.0-0.4); Basophil (Absolute #) 0.02 (0-0.4); Eosinophil % 1.8 % (0.00-5.0); Eosinophil (Absolute #) 0.08 (0-0.5); Hematocrit 43.7 % (42-50); Hemoglobin 14.5 gm/dl (12.5-18.0); Lymphocyte (Absolute #) 1.69 (1.0-4.6); Lymphocytes % 38.2 % (24.0-44.0); Mean Cell Volume 88.3 fl (78-100); Mean Corpuscular Hemoglobin 29.3 pg (26-32); Mean Corpuscular Hgb Concent. 33.2 g/dl (32-36); Mean Platelet Volume 10.2 fl (7.5-11.0); Monocyte (Absolute #) 0.84 (0.0-1.3); Neutrophil % 40.5 % (36.0-66.0); Platelet Count 197 K/mm3 (150-450); Red Blood Count 4.95 M/mm3 (4.1-5.6); Red Cell Distribution Width 12.6 % (11.5-14.0); White Blood Count 4.4 K/mm3 (4.0-10.5)
[2020-11-17 09:32] LABS: ALKALINE PHOSPHATASE 61 U/L (38-126); ANION GAP 17.4 MEQ/L (5-15); BLOOD UREA NITROGEN 18 mg/dL (9-20); CHLORIDE 104 mmol/L (98-107); CK-Creatinine Phosphokinase 453 U/L (55-170); Carbon Dioxide 21 mmol/L (22-30); Creatinine 1 0.88 mg/dL (0.66-1.25); EST GLOMERULAR FILTRATION RATE > 60.0 ML/MIN; Glucose 61 mg/dL (74-106); Potassium 3.9 mmol/L (3.5-5.1); SGOT/AST 49 U/L (17-59); SGPT/ALT 19 U/L (0-50); SODIUM 138 mmol/L (137-145)
--- NOTE | 2020-11-17 10:10 | XRAY ---
Indication: Acute mental status change. Confusion. Multiple contiguous axial images obtained through the head prior to and following 80 cc Isovue 370 contrast. Comparison: None Ventriculosulcal pattern appears symmetric. No acute intracranial hemorrhage, abnormal extra-axial fluid collection, or mass effect. Postcontrast images are negative for abnormal enhancing intra or extra-axial mass. Fourth ventricle is midline without hydrocephalus. Lay-white matter differentiation preserved. Bony calvarium intact. Visualized paranasal sinuses and mastoid air cells are clear. Impression: Normal CT head with and without contrast exam.
[2020-11-17] MEDS: Haldol 5 MG IM PRN (18:36)
[2020-11-17] MEDS ORDERED: Nicoderm CQ 21 MG TOP SCH (18:45)
[2020-11-18 07:28] LABS: ANION GAP 10.6 MEQ/L (5-15); BLOOD UREA NITROGEN 15 mg/dL (9-20); CHLORIDE 109 mmol/L (98-107); Calcium 8.2 mg/dL (8.4-10.2); Carbon Dioxide 25 mmol/L (22-30); Creatinine 1 0.85 mg/dL (0.66-1.25); EST GLOMERULAR FILTRATION RATE > 60.0 ML/MIN; Glucose 73 mg/dL (74-106); Potassium 4.1 mmol/L (3.5-5.1); SODIUM 140 mmol/L (137-145)
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
[2020-11-18 09:37] LABS: Absolute Neutrophil Ct (ANC) 1.44 (1.4-6.9); BASOPHIL % 0.6 % (0.0-0.4); Basophil (Absolute #) 0.02 (0-0.4); Eosinophil (Absolute #) 0.07 (0-0.5); Hematocrit 41.8 % (42-50); Hemoglobin 13.6 gm/dl (12.5-18.0); Lymphocyte (Absolute #) 1.44 (1.0-4.6); Lymphocytes % 42.1 % (24.0-44.0); Mean Cell Volume 89.9 fl (78-100); Mean Corpuscular Hemoglobin 29.2 pg (26-32); Mean Corpuscular Hgb Concent. 32.5 g/dl (32-36); Mean Platelet Volume 10.9 fl (7.5-11.0); Monocyte (Absolute #) 0.45 (0.0-1.3); Monocytes % 13.2 % (0.0-12.0); Neutrophil % 42.1 % (36.0-66.0); Platelet Count 174 K/mm3 (150-450); Red Blood Count 4.65 M/mm3 (4.1-5.6); Red Cell Distribution Width 12.6 % (11.5-14.0); White Blood Count 3.4 K/mm3 (4.0-10.5)
[2020-11-18] MEDS: Sodium Chloride 0.9% 1000 ML 1,000 ML IV SCH (10:51)
[2020-11-18 11:34] VITALS: BP 91/56; PULSE 66; O2SAT 100
== END 2020-11-18 14:08 ==
LOC: ED 05:35 → ICU 12:16
PROVIDERS: ADMIT Family Medicine; ATTEND Family Medicine
DX: F22 Delusional disorders (principal); R74.8 Abnormal levels of other serum enzymes; R44.3 Hallucinations, unspecified; F19.10 Other psychoactive substance abuse, uncomplicated; R50.9 Fever, unspecified; Z20.822 Contact with and (suspected) exposure to COVID-19
CPT/HCPCS: 0241U; 36000; 36415; 70470; 71045; 71260; 80048; 80053; 80074; 80307; 81001; 82550; 84443; 84484; 85025; 85379; 86308; 86592; 87389; 87400; 87651; 93005; 93268; 94762; 96360; 96374; 96376; 99285; G0378; G0480; 96375; J1200; J1630; J2060; A9270-GY

== ENCOUNTER 2020-12-06 10:41 | Emergency (ER) | payer OTHER ==
[2020-12-06 11:06] LABS: Absolute Neutrophil Ct (ANC) 8.13 (1.4-6.9); BASOPHIL % 0.3 % (0.0-0.4); Basophil (Absolute #) 0.04 (0-0.4); Eosinophil % 0.1 % (0.00-5.0); Eosinophil (Absolute #) 0.01 (0-0.5); Hematocrit 44.6 % (42-50); Hemoglobin 14.9 gm/dl (12.5-18.0); Lymphocyte (Absolute #) 2.21 (1.0-4.6); Lymphocytes % 18.9 % (24.0-44.0); Mean Cell Volume 88.1 fl (78-100); Mean Corpuscular Hemoglobin 29.4 pg (26-32); Mean Corpuscular Hgb Concent. 33.4 g/dl (32-36); Mean Platelet Volume 9.6 fl (7.5-11.0); Monocyte (Absolute #) 1.33 (0.0-1.3); Monocytes % 11.3 % (0.0-12.0); Neutrophil % 69.4 % (36.0-66.0); Platelet Count 284 K/mm3 (150-450); Red Blood Count 5.06 M/mm3 (4.1-5.6); Red Cell Distribution Width 13.2 % (11.5-14.0); White Blood Count 11.7 K/mm3 (4.0-10.5)
[2020-12-06 11:11] LABS: ACETAMINOPHEN < 10 ug/ml (10-30); ALBUMIN 5.4 g/dL (3.5-5.0); ALKALINE PHOSPHATASE 76 U/L (38-126); BLOOD UREA NITROGEN 22 mg/dL (9-20); CHLORIDE 101 mmol/L (98-107); Calcium 10.5 mg/dL (8.4-10.2); Carbon Dioxide 28 mmol/L (22-30); Creatinine 1 0.96 mg/dL (0.66-1.25); EST GLOMERULAR FILTRATION RATE > 60.0 ML/MIN; ETHYL ALCOHOL < 10 mg/dL (0-10); Glucose 92 mg/dL (74-106); Potassium 4.5 mmol/L (3.5-5.1); SALICYLATE < 1.0 mg/dL (2-20); SGOT/AST 43 U/L (17-59); SGPT/ALT 27 U/L (0-50); SODIUM 141 mmol/L (137-145); Total Protein 9.6 g/dL (6.3-8.2)
--- NOTE | 2020-12-06 11:32 | ERPHSYRPT ---
- History of Present Illness Source: patient, police Patient Subjective Stated Complaint: PT states "I am paranoid again. I am hearing voices again." Triage Nursing Assessment: Pt presented alert and oriented X 3, skin pwd pt ambulates with an upright steady gait, able to speak in clear full sentences pt in no apparent respiratory distress. Physician History: 25 yo wm w bipolar ds/substance abuse disorder presents by police for possible paranoid behavior at local gas station. Pt admits to smoking marijuana and also synthetic marijuana. He denies suicidal/homicidal ideation and is alert/oriented x3. Pt is established at the [facility]. Timing/Duration: today Severity of Symptoms-Max: moderate Severity of Symptoms-Current: mild Context related to: other (Unknown) Suicidal thoughts: other (Denies) Allergies/Adverse Reactions: olanzapine Adverse Reaction (Verified 11/16/20 06:07) Home Medications: Trazodone HCl 50 mg [Desyrel 50 mg] 50 mg PO DAILY 12/06/20 [History] Hx Tetanus, Diphtheria Vaccination/Date Given: Yes Hx Influenza Vaccination/Date Given: No Hx Pneumococcal Vaccination/Date Given: No Immunizations Up to Date: Yes Travel Risk - International Travel Have you traveled outside of the country in past 3 weeks: No - Coronavirus Screening Are you exhibiting any of the following symptoms?: No Close contact with a COVID-19 positive Pt in past 14-21 Days: No - Vaccine Status Have you recieved a Covid-19 vaccination: No - Past Medical History Pertinent Past Medical History: Yes Neurological History: No Pertinent History ENT History: No Pertinent History Cardiac History: No Pertinent History Respiratory History: No Pertinent History Endocrine Medical History: No Pertinent History Musculoskeletal History: No Pertinent History GI Medical History: Hepatitis Psycho-Social History: Anxiety, Bipolar, Depression, Other Other Medical History: "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 HIV, Hepatits - Past Surgical History Past Surgical History: Yes Neuro Surgical History: No Pertinent History Cardiac: No Pertinent History Respiratory: No Pertinent History Gastrointestinal: No Pertinent History Genitourinary: No Pertinent History Musculoskeletal: No Pertinent History Other Surgical History: RT THUMB DISLOCATION/FX - Social History Smoking Status: Unknown if ever smoked How long have you smoked: 9yrs Exposure to second hand smoke: Yes Drug Use: methamphetamines Patient Lives Alone: Yes Significant Family History: no pertinent family hx - Review of Systems Constitutional: No Symptoms Eyes: No Symptoms Ears, Nose, & Throat: No Symptoms Respiratory: No Symptoms Cardiac: No Symptoms Abdominal/Gastrointestinal: No Symptoms Genitourinary Symptoms: No Symptoms Musculoskeletal: No Symptoms Skin: No Symptoms Neurological: No Symptoms Endocrine: No Symptoms Hematologic/Lymphatic: No Symptoms Immunological/Allergic: No Symptoms - Nursing Vital Signs Nursing Vital Signs: Initial Vital Signs Temperature 98.9 F 12/06/20 10:41 Pulse Rate 82 12/06/20 10:41 Respiratory Rate 20 12/06/20 10:41 Blood Pressure 120/91 12/06/20 10:41 O2 Sat by Pulse Oximetry 98 12/06/20 10:41 Pain Scale Pain Intensity 0 - Physical Exam General Appearance: no apparent distress Eyes, Ears, Nose, Throat Exam: normal ENT inspection, TMs normal, pharynx normal, moist mucous membranes Neck Exam: normal inspection, non-tender, supple, full range of motion, No Brudzinski, No Kernig's, No meningismus, No carotid bruit Respiratory Exam: normal breath sounds, lungs clear, airway intact, No respiratory distress Cardiovascular Exam: normal peripheral pulses, tachycardia Gastrointestinal/Abdominal Exam: soft, normal bowel sounds, No tenderness, No distention Extremities Exam: normal inspection, normal range of motion, No evidence of injury Current Suicidality: denies suicide plan Neurological Exam: alert, christian science nurse II-XII nml as tested, oriented x 3, responds to pain Appearance: appropriate appearance Behavior/Eye Contact/Speech: alert & cooperative, good eye contact Skin Exam: normal color, warm, dry, No rash SpO2 Interpretation: normal SpO2: 98 O2 Delivery: Room Air - Course Nursing assessment & vital signs reviewed: Yes EKG Interpreted by Me: RATE (NSR/R92/Normal QT-QTc/No acute ST-Twave changes) Ordered Tests: Active Orders 24 hr Category Date Time Status EKG-ER Only STAT Care 12/06/20 10:44 Completed ACETAMINOPHEN Stat Lab 12/06/20 10:55 Completed CBC W DIFF Stat Lab 12/06/20 10:55 Completed CMP Stat Lab 12/06/20 10:55 Completed ETHYL ALCOHOL Stat Lab 12/06/20 10:55 Completed LITHIUM Stat Lab 12/06/20 10:55 Completed SALICYLATE Stat Lab 12/06/20 10:55 Completed TROPONIN Q3H Lab 12/06/20 10:55 Completed Urine Triage Profile Stat Lab 12/06/20 11:28 Completed Medication Summary Discontinued Medications Generic Name Dose Route Start Last Admin Trade Name Freq PRN Reason Stop Dose Admin Acetaminophen 650 mg 12/06/20 11:46 12/06/20 13:08 Tylenol Extra Strength 500 Mg PO 12/06/20 11:47 Not Given STAT STA Acetaminophen Confirm 12/06/20 11:49 Tylenol Extra Strength 500 Mg Administered 12/06/20 11:50 Dose 1,000 mg .ROUTE .STK-MED ONE Acetaminophen 975 mg 12/06/20 11:51 12/06/20 13:07 Tylenol 325 Mg PO 12/06/20 11:52 Not Given STAT STA Acetaminophen 1,000 mg 12/06/20 13:08 12/06/20 13:11 Tylenol Extra Strength 500 Mg PO 01/05/21 13:07 500 mg Q4H PRN PRN Administration HEADACHE Lab/Rad Data: Laboratory Result Diagrams 12/06/20 10:55 12/06/20 10:55 Laboratory Results 12/06/20 12/06/20 12/06/20 Range/Units 11:28 10:55 10:55 WBC (4.0-10.5) K/mm3 RBC (4.1-5.6) M/mm3 Hgb (12.5-18.0) gm/dl Hct (42-50) % MCV (78-100) fl MCH (26-32) pg MCHC (32-36) g/dl RDW (11.5-14.0) % Plt Count (150-450) K/mm3 MPV (7.5-11.0) fl Gran % (36.0-66.0) % Eos # (Auto) (0-0.5) Absolute Lymphs (auto) (1.0-4.6) Absolute Monos (auto) (0.0-1.3) Lymphocytes % (24.0-44.0) % Monocytes % (0.0-12.0) % Eosinophils % (0.00-5.0) % Basophils % (0.0-0.4) % Absolute Granulocytes (1.4-6.9) Basophils # (0-0.4) Sodium (137-145) mmol/L Potassium (3.5-5.1) mmol/L Chloride (98-107) mmol/L Carbon Dioxide (22-30) mmol/L Anion Gap (5-15) MEQ/L BUN (9-20) mg/dL Creatinine (0.66-1.25) mg/dL Estimated GFR ML/MIN Glucose (74-106) mg/dL Calcium (8.4-10.2) mg/dL Total Bilirubin (0.2-1.3) mg/dL AST (17-59) U/L ALT (0-50) U/L Alkaline Phosphatase (38-126) U/L Troponin I < 0.012 (0.000-0.034) ng/mL Serum Total Protein (6.3-8.2) g/dL Albumin (3.5-5.0) g/dL Salicylates (2-20) mg/dL Urine Opiates Level NEGATIVE (NEGATIVE) Ur Methadone NEGATIVE (NEGATIVE) Acetaminophen (10-30) ug/ml Urine Barbiturates NEGATIVE (NEGATIVE) Ur Phencyclidine (PCP) NEGATIVE (NEGATIVE) Urine Amphetamine POSITIVE (NEGATIVE) U Benzodiazepine Level NEGATIVE (NEGATIVE) [place] < 0.2 L (0.60-1.20) mmol/L Urine Cocaine NEGATIVE (NEGATIVE) Urine Marijuana (THC) POSITIVE (NEGATIVE) Ethyl Alcohol (0-10) mg/dL 12/06/20 12/06/20 Range/Units 10:55 10:55 WBC 11.7 H (4.0-10.5) K/mm3 RBC 5.06 (4.1-5.6) M/mm3 Hgb 14.9 (12.5-18.0) gm/dl Hct 44.6 (42-50) % MCV 88.1 (78-100) fl MCH 29.4 (26-32) pg MCHC 33.4 (32-36) g/dl RDW 13.2 (11.5-14.0) % Plt Count 284 (150-450) K/mm3 MPV 9.6 (7.5-11.0) fl Gran % 69.4 H (36.0-66.0) % Eos # (Auto) 0.01 (0-0.5) Absolute Lymphs (auto) 2.21 (1.0-4.6) Absolute Monos (auto) 1.33 H (0.0-1.3) Lymphocytes % 18.9 L (24.0-44.0) % Monocytes % 11.3 (0.0-12.0) % Eosinophils % 0.1 (0.00-5.0) % Basophils % 0.3 (0.0-0.4) % Absolute Granulocytes 8.13 H (1.4-6.9) Basophils # 0.04 (0-0.4) Sodium 141 (137-145) mmol/L Potassium 4.5 (3.5-5.1) mmol/L Chloride 101 (98-107) mmol/L Carbon Dioxide 28 (22-30) mmol/L Anion Gap 17.0 H (5-15) MEQ/L BUN 22 H (9-20) mg/dL Creatinine 0.96 (0.66-1.25) mg/dL Estimated GFR > 60.0 ML/MIN Glucose 92 (74-106) mg/dL Calcium 10.5 H (8.4-10.2) mg/dL Total Bilirubin 1.30 (0.2-1.3) mg/dL AST 43 (17-59) U/L ALT 27 (0-50) U/L Alkaline Phosphatase 76 (38-126) U/L Troponin I (0.000-0.034) ng/mL Serum Total Protein 9.6 H (6.3-8.2) g/dL Albumin 5.4 H (3.5-5.0) g/dL Salicylates < 1.0 L (2-20) mg/dL Urine Opiates Level (NEGATIVE) Ur Methadone (NEGATIVE) Acetaminophen < 10 L (10-30) ug/ml Urine Barbiturates (NEGATIVE) Ur Phencyclidine (PCP) (NEGATIVE) Urine Amphetamine (NEGATIVE) U Benzodiazepine Level (NEGATIVE) [place] (0.60-1.20) mmol/L Urine Cocaine (NEGATIVE) Urine Marijuana (THC) (NEGATIVE) Ethyl Alcohol < 10 (0-10) mg/dL - Progress Progress Note: 12/06/20 14:09 Pt is not under arrest and is not suicidal/homicidal. Pt does not want to wait or [facility] consult. loans officer does not believe that pt homicidal/suicidal. 12/06/20 20:48 Counseled pt/family regarding: lab results, diagnosis, need for follow-up - Departure Departure Disposition: Home Clinical Impression: Substance abuse, Bipolar 1 disorder Condition: Stable Critical Care Time: No Referrals: Saba WEST MD [Primary Care Provider] - Instructions: Bipolar Disorder (DC), Marijuana Use and Addiction (DC), Polysubstance Abuse Additional Instructions: Follow up with the [facility] RYAN Return to ER as needed
[2020-12-06] MEDS ORDERED: TYLENOL EXTRA STRENGTH 500 MG PO STA (11:46)
[2020-12-06] MEDS ORDERED: TYLENOL EXTRA STRENGTH 500 MG ONE (11:49)
[2020-12-06] MEDS ORDERED: TYLENOL 325 MG PO STA (11:51)
[2020-12-06 11:56] LABS: Barbiturate,Urine NEGATIVE (NEGATIVE); Benzodiazepine,Urine NEGATIVE (NEGATIVE); Cocaine,Urine NEGATIVE (NEGATIVE); Methadone,Urine NEGATIVE (NEGATIVE); Opiate,Urine NEGATIVE (NEGATIVE); PCP,Urine NEGATIVE (NEGATIVE); THC,Urine POSITIVE (NEGATIVE)
[2020-12-06 11:59] LABS: Amphetamine,Urine POSITIVE (NEGATIVE)
[2020-12-06 13:03] VITALS: BP 128/86; PULSE 86; O2SAT 98
[2020-12-06] MEDS ORDERED: TYLENOL EXTRA STRENGTH 500 MG PO PRN (13:08)
== END 2020-12-06 14:17 | disposition home or self-care (01) ==
LOC: ED 10:41
DX: F19.20 Other psychoactive substance dependence, uncomplicated (principal); F31.9 Bipolar disorder, unspecified
CPT/HCPCS: 36415; 80053; 80178; 80307; 84484; 85025; 93005; 99284; G0480; A9270-GY

== ENCOUNTER 2021-07-18 15:06 | Emergency (ER) | payer OTHER ==
[2021-07-18 15:19] VITALS: BP 102/71; PULSE 81; O2SAT 100
[2021-07-18 15:20] LABS: Appearance CLEAR (CLEAR); Bilirubin NEGATIVE (NEGATIVE); Blood NEGATIVE Ery/ul (0-5); Glucose NEGATIVE (NEGATIVE); Ketones NEGATIVE (NEGATIVE); Leukocyte Esterase NEGATIVE (NEGATIVE); Mucus SLIGHT /HPF (NEGATIVE); Nitrite NEGATIVE (NEGATIVE); Protein,Urine Dip NEGATIVE (Negative); Specific Gravity 1.009 (1.005-1.025); Urobilinogen NEGATIVE mg/dL (0-1)
--- NOTE | 2021-07-18 15:23 | ERPHSYRPT ---
- History of Present Illness Time Seen by Provider: 07/18/21 15:20 Source: patient Exam Limitations: no limitations Patient Subjective Stated Complaint: pt is concerned that he has been exposed to chlamydia by a previous partner. pt denies symptoms. Triage Nursing Assessment: pt is aox3, pupils perrl, afebrile, resps easy and non labored, cap refill < 3 seconds, radial pulses strong and equal, pt skin pink warm dry. Physician History: Patient is a 25-year-old male presents to our ED for evaluation of STD exposure. Patient had unprotected sex with a partner. Patient was advised that he may have chlamydia. Patient is here for test. Patient does not want to be treated empirically. Patient is asymptomatic. No penile lesions no scrotal pain additionally patient has been around marijuana smoking and wants to be tested. He is otherwise asymptomatic. Patient denies pain. No penile discharge. No dysuria or hematuria. No trauma. No fever. Patient states she is healthy otherwise. He voices no other complaints or concerns at this time. Timing/Duration: yesterday Severity: moderate Modifying Factors: Improves With: nothing Associated Symptoms: denies symptoms Allergies/Adverse Reactions: olanzapine Adverse Reaction (Verified 07/18/21 15:19) Home Medications: Trazodone HCl 50 mg [Desyrel 50 mg] 50 mg PO DAILY 12/06/20 [History] Hx Tetanus, Diphtheria Vaccination/Date Given: Yes Hx Influenza Vaccination/Date Given: No Hx Pneumococcal Vaccination/Date Given: No Immunizations Up to Date: Yes Travel Risk - International Travel Have you traveled outside of the country in past 3 weeks: No - Coronavirus Screening Are you exhibiting any of the following symptoms?: No Close contact with a COVID-19 positive Pt in past 14-21 Days: No - Vaccine Status Have you recieved a Covid-19 vaccination: No - Review of Systems Constitutional: No Symptoms, No Fever, No Chills Eyes: No Symptoms Ears, Nose, & Throat: No Symptoms Respiratory: No Symptoms, No Cough, No Dyspnea Cardiac: No Symptoms, No Chest Pain, No Edema, No Syncope Abdominal/Gastrointestinal: No Symptoms, No Abdominal Pain, No Nausea, No Vomiting, No Diarrhea Genitourinary Symptoms: No Symptoms, No Dysuria Musculoskeletal: No Symptoms, No Back Pain, No Neck Pain Skin: No Symptoms, No Rash Neurological: No Symptoms, No Dizziness, No Focal Weakness, No Sensory Changes Psychological: No Symptoms Endocrine: No Symptoms Hematologic/Lymphatic: No Symptoms Immunological/Allergic: No Symptoms All Other Systems: Reviewed and Negative - Past Medical History Pertinent Past Medical History: Yes Neurological History: No Pertinent History ENT History: No Pertinent History Cardiac History: No Pertinent History Respiratory History: No Pertinent History Endocrine Medical History: No Pertinent History Musculoskeletal History: No Pertinent History GI Medical History: Hepatitis Psycho-Social History: Anxiety, Bipolar, Depression, Other Other Medical History: "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 HIV, Hepatits - Past Surgical History Past Surgical History: Yes Neuro Surgical History: No Pertinent History Cardiac: No Pertinent History Respiratory: No Pertinent History Gastrointestinal: No Pertinent History Genitourinary: No Pertinent History Musculoskeletal: No Pertinent History Other Surgical History: RT THUMB DISLOCATION/FX - Social History Smoking Status: Current every day smoker How long have you smoked: 9yrs Exposure to second hand smoke: Yes Drug Use: none Patient Lives Alone: No Significant Family History: no pertinent family hx - Nursing Vital Signs Nursing Vital Signs: Initial Vital Signs Temperature 98.0 F 07/18/21 15:09 Pulse Rate 81 07/18/21 15:09 Respiratory Rate 18 07/18/21 15:09 Blood Pressure 102/71 07/18/21 15:09 O2 Sat by Pulse Oximetry 100 07/18/21 15:09 Pain Scale Pain Intensity 0 - Physical Exam General Appearance: no apparent distress, alert Eye Exam: PERRL/EOMI, eyes nml inspection Ears, Nose, Throat Exam: normal ENT inspection, TMs normal, pharynx normal, moist mucous membranes Neck Exam: normal inspection, non-tender, supple, full range of motion Respiratory Exam: normal breath sounds, lungs clear, No respiratory distress Cardiovascular Exam: regular rate/rhythm, normal heart sounds, normal peripheral pulses Gastrointestinal/Abdomen Exam: soft, normal bowel sounds, No tenderness, No mass Back Exam: normal inspection, normal range of motion, No CVA tenderness, No vertebral tenderness Extremity Exam: normal inspection, normal range of motion, pelvis stable Neurologic Exam: alert, oriented x 3, cooperative, normal mood/affect, nml cerebellar function, nml station & gait, sensation nml, No motor deficits Skin Exam: normal color, warm, dry, No rash Lymphatic Exam: No adenopathy SpO2 Interpretation: normal SpO2: 100 O2 Delivery: Room Air - Course Nursing assessment & vital signs reviewed: Yes Ordered Tests: Active Orders 24 hr Category Date Time Status UA W/RFX UR CULTURE Stat Lab 07/18/21 15:12 Completed Urine Triage Profile Stat Lab 07/18/21 15:23 Completed Lab/Rad Data: Laboratory Results 07/18/21 07/18/21 07/18/21 Range/Units 15:23 15:12 15:11 Urine Color YELLOW (YELLOW) Urine Appearance CLEAR (CLEAR) Urine pH 8.0 (5-6) Ur Specific [place] 1.009 (1.005-1.025) Urine Protein NEGATIVE (Negative) Urine Ketones NEGATIVE (NEGATIVE) Urine Blood NEGATIVE (0-5) Chris/ul Urine Nitrite NEGATIVE (NEGATIVE) Urine Bilirubin NEGATIVE (NEGATIVE) Urine Urobilinogen NEGATIVE (0-1) mg/dL Ur Leukocyte Esterase NEGATIVE (NEGATIVE) Urine WBC (Auto) NONE (0-5) /HPF Urine Mucus (Auto) SLIGHT (NEGATIVE) /HPF Urine Culture Reflexed NO (NO) Urine Glucose NEGATIVE (NEGATIVE) mg/dL Urine Opiates Level NEGATIVE (NEGATIVE) Ur Methadone NEGATIVE (NEGATIVE) Urine Barbiturates NEGATIVE (NEGATIVE) Ur Phencyclidine (PCP) NEGATIVE (NEGATIVE) Urine Amphetamine NEGATIVE (NEGATIVE) U Benzodiazepine Level NEGATIVE (NEGATIVE) Urine Cocaine NEGATIVE (NEGATIVE) Urine Marijuana (THC) POSITIVE (NEGATIVE) Chlamydia DNA Probe NOT DETECTED (NEGATIVE) N.gonorrhoeae DNA Probe NOT DETECTED (NEGATIVE) - Progress Progress: improved Progress Note: Patient did not want to stay for the results of his GC chlamydia and urine tox cream. Patient advised that we call him with the results. However the number he gave us was not to his cell phone. It was an [phone] area code number. This number was to a business and not a cell phone. We made an attempt to contact patient to notify him of results. Prior to his discharge patient was advised to follow-up with his primary care doctor within 48 hours for reevaluation. Patient agreed. Portions of this note were created with voice recognition technology. There may be grammatical, spelling, punctuation or sound alike errors 07/19/21 03:29 Counseled pt/family regarding: lab results, diagnosis - Departure Departure Disposition: Home Clinical Impression: STD exposure, Exposure to marijuana smoke Condition: Stable Critical Care Time: No Referrals: Saba WEST MD [Primary Care Provider] - Follow up/PCP as directed Instructions: Chlamydia and Gonorrhea Additional Instructions: Discharge/Care Plan KELLIE STEIN was seen on 07/18/21 in the Emergency Room. The patient was counseled regarding Diagnosis,Lab results, Imaging studies, need for follow up and when to return to the Emergency Room. Prescriptions given: Discharge Note I have spoken with the patient and/or caregivers. I have explained the patient's condition, diagnosis and treatment plan based on the information available to me at this time. I have answered the patient's and/or caregiver's questions and addressed any concerns. The patient and/or caregivers have as good understanding of the patient's diagnosis, condition and treatment plan as can be expected at this point. The vital signs have been stable. The patient's condition is stable and appropriate for discharge from the emergency department. The patient will pursue further outpatient evaluation with the primary care physician or other designated or consulting physician as outlined in the discharge instructions. The patient and/or caregivers are agreeable to this plan of care and follow-up instructions have been explained in detail. The patient and/or caregivers have received these instruction. The patient/and or caregivers are aware that any significant change in condition or worsening of symptoms should prompt an immediate return to this or the closest emergency department or call 911.
[2021-07-18 16:25] LABS: Amphetamine,Urine NEGATIVE (NEGATIVE); Barbiturate,Urine NEGATIVE (NEGATIVE); Benzodiazepine,Urine NEGATIVE (NEGATIVE); Cocaine,Urine NEGATIVE (NEGATIVE); Methadone,Urine NEGATIVE (NEGATIVE); Opiate,Urine NEGATIVE (NEGATIVE); PCP,Urine NEGATIVE (NEGATIVE); THC,Urine POSITIVE (NEGATIVE)
[2021-07-18 16:52] LABS: CHLAMYDIA DNA NOT DETECTED (NEGATIVE); GC DNA Probe NOT DETECTED (NEGATIVE)
== END 2021-07-18 15:31 | disposition home or self-care (01) ==
LOC: ED 15:06
DX: Z20.2 Contact with and (suspected) exposure to infections with a predominantly sexual mode of transmission (principal); F12.99 Cannabis use, unspecified with unspecified cannabis-induced disorder; Z21 Asymptomatic human immunodeficiency virus [HIV] infection status; Z72.0 Tobacco use
CPT/HCPCS: 80307; 81001; 87491; 87591; 99283

== ENCOUNTER 2022-01-05 15:21 | Emergency (ER) | payer OTHER ==
[2022-01-05] MEDS ORDERED: TORAdol 30 mg Injection IM ONE (15:46)
[2022-01-05] MEDS ORDERED: Sodium Chloride 0.9% 1000 ML 1,000 ML IV STA (15:46)
[2022-01-05] MEDS ORDERED: TYLENOL 325 MG PO ONE (15:46)
[2022-01-05] MEDS ORDERED: DECADRON 10MG INJ. IV ONE (15:47)
[2022-01-05] MEDS ORDERED: TORAdol 30 mg Injection ONE (15:51)
[2022-01-05] MEDS ORDERED: DECADRON 10MG INJ. ONE (15:51)
[2022-01-05] MEDS ORDERED: Sodium Chloride 0.9% 1000 ML 1,000 ML ONE (15:52)
[2022-01-05] MEDS ORDERED: TYLENOL 325 MG ONE (15:52)
[2022-01-05 16:37] VITALS: PULSE 88
[2022-01-05 16:41] VITALS: O2SAT 99
--- NOTE | 2022-01-05 16:41 | ERPHSYRPT ---
- History of Present Illness Time Seen by Provider: 01/05/22 15:45 Source: patient Exam Limitations: no limitations Patient Subjective Stated Complaint: Fever Triage Nursing Assessment: Patient ambulated back to ED and transferred self to bed. Patient A+O x3. Patient's skin flushed, warm and dry. Patient sent here from [facility] due to fever and sore throat with negative strep screen. Patient complains of sore throat and upper back pain 10/10. Patient has white patches on the right side of throat. Physician History: Patient is a 26-year-old male presents to emergency department for evaluation of fever and sore throat. Patient was referred to our emergency department from [facility]. They were concerned regarding patient's fever. They felt patient appeared dehydrated and required IV fluid therapy. [facility] performed a rapid strep which was negative. Patient complains of a sore throat. Painful swallowing. Decreased p.o. due to sore throat. No other complaints. Symptoms are mild to moderate in intensity. No specific worsening improving factors. No trauma. No nausea or vomiting. No diarrhea. No rash. Patient voices no other complaints or concerns at this time. Timing/Duration: day(s) (2 days) Modifying Factors: Improves With: nothing (Patient has not self medicated for pain) Associated Symptoms: denies symptoms, No nausea, No vomiting, No abdominal pain, No shortness of breath, No heartburn, No diaphoresis, No chest pain, No headaches, No syncope, No seizure, No weakness Allergies/Adverse Reactions: olanzapine Adverse Reaction (Verified 01/05/22 15:34) Hx Tetanus, Diphtheria Vaccination/Date Given: Yes Hx Influenza Vaccination/Date Given: No Hx Pneumococcal Vaccination/Date Given: No Immunizations Up to Date: Yes Travel Risk - International Travel Have you traveled outside of the country in past 3 weeks: No - Coronavirus Screening Are you exhibiting any of the following symptoms?: Yes Symptoms: Fever Close contact with a COVID-19 positive Pt in past 14-21 Days: No - Vaccine Status Have you recieved a Covid-19 vaccination: No Meat [employer]: Pfizer - Vaccination Dates Date of 2cond Vaccination (if applicable): na - Review of Systems Constitutional: No Symptoms, No Fever, No Chills Eyes: No Symptoms Ears, Nose, & Throat: No Symptoms Respiratory: No Symptoms, No Cough, No Dyspnea Cardiac: No Symptoms, No Chest Pain, No Edema, No Syncope Abdominal/Gastrointestinal: No Symptoms, No Abdominal Pain, No Nausea, No Vomiting, No Diarrhea Genitourinary Symptoms: No Symptoms, No Dysuria Musculoskeletal: No Symptoms, No Back Pain, No Neck Pain Skin: No Symptoms, No Rash Neurological: No Symptoms, No Dizziness, No Focal Weakness, No Sensory Changes Psychological: No Symptoms Endocrine: No Symptoms Hematologic/Lymphatic: No Symptoms Immunological/Allergic: No Symptoms All Other Systems: Reviewed and Negative - Past Medical History Pertinent Past Medical History: Yes Neurological History: No Pertinent History ENT History: No Pertinent History Cardiac History: No Pertinent History Respiratory History: No Pertinent History Endocrine Medical History: No Pertinent History Musculoskeletal History: No Pertinent History GI Medical History: Hepatitis Psycho-Social History: Anxiety, Bipolar, Depression, Other Other Medical History: "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 HIV, Hepatits - Past Surgical History Past Surgical History: Yes Neuro Surgical History: No Pertinent History Cardiac: No Pertinent History Respiratory: No Pertinent History Gastrointestinal: No Pertinent History Genitourinary: No Pertinent History Musculoskeletal: No Pertinent History Other Surgical History: RT THUMB DISLOCATION/FX - Social History Smoking Status: Current every day smoker How long have you smoked: 9yrs Exposure to second hand smoke: Yes Drug Use: none Patient Lives Alone: No Significant Family History: no pertinent family hx - Nursing Vital Signs Nursing Vital Signs: Initial Vital Signs Temperature 102.8 F 01/05/22 15:36 Pulse Rate 94 H 01/05/22 15:36 Respiratory Rate 18 01/05/22 15:36 Blood Pressure 128/80 01/05/22 15:36 O2 Sat by Pulse Oximetry 99 01/05/22 15:36 Pain Scale Pain Intensity 8 - Physical Exam General Appearance: no apparent distress, alert Eye Exam: PERRL/EOMI, eyes nml inspection Ears, Nose, Throat Exam: normal ENT inspection, TMs normal, pharynx normal, moist mucous membranes, pharyngeal erythema, tonsillar exudate (Uvula at midline, no sublingual masses.), other (Right tonsillar exudates, erythematous oropharynx. 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) Neck Exam: normal inspection, non-tender, supple, full range of motion Respiratory Exam: normal breath sounds, lungs clear, airway intact, No respiratory distress Cardiovascular Exam: regular rate/rhythm, normal heart sounds, normal peripheral pulses Gastrointestinal/Abdomen Exam: soft, normal bowel sounds, No tenderness, No mass Back Exam: normal inspection, normal range of motion, No CVA tenderness, No vertebral tenderness Extremity Exam: normal inspection, normal range of motion, pelvis stable Neurologic Exam: alert, oriented x 3, cooperative, normal mood/affect, nml cerebellar function, nml station & gait, sensation nml, No motor deficits Skin Exam: normal color, warm, dry, No rash Lymphatic Exam: No adenopathy SpO2 Interpretation: normal SpO2: 99 O2 Delivery: Room Air - Course Nursing assessment & vital signs reviewed: Yes Ordered Tests: Active Orders 24 hr Category Date Time Status IV Insertion STAT Care 01/05/22 15:46 Active [place] Screen Stat Lab 01/05/22 15:45 Completed Medication Summary Generic Name Dose Route Start Last Admin Trade Name Freq PRN Reason Stop Dose Admin Ceftriaxone Sodium/Dextrose 1 g in 50 mls @ 100 mls/hr 01/06/22 10:00 01/05/22 17:00 Rocephin 1 Gm-D5w 50 Ml Bag IV 01/09/22 09:59 100 mls/hr [id number] RENETTA 100 mls/hr Administration Discontinued Medications Generic Name Dose Route Start Last Admin Trade Name Freq PRN Reason Stop Dose Admin Acetaminophen 975 mg 01/05/22 15:46 01/05/22 15:54 Acetaminophen 325 Mg Tablet PO 01/05/22 15:47 975 mg STAT ONE Administration Acetaminophen Confirm 01/05/22 15:52 Acetaminophen 325 Mg Tablet Administered 01/05/22 15:53 Dose 975 mg .ROUTE .STK-MED ONE Azithromycin 1,000 mg 01/05/22 16:44 01/05/22 17:00 Azithromycin 250 Mg Tablet PO 01/05/22 16:45 1,000 mg STAT ONE Administration Azithromycin Confirm 01/05/22 16:55 Azithromycin 250 Mg Tablet Administered 01/05/22 16:56 Dose 1,000 mg .ROUTE .STK-MED ONE Dexamethasone Sodium Phosphate 10 mg 01/05/22 15:47 01/05/22 15:54 Dexamethasone Sod Phosphate 10 Mg/Ml IV 01/05/22 15:48 10 mg STAT ONE Administration Dexamethasone Sodium Phosphate Confirm 01/05/22 15:51 Dexamethasone Sod Phosphate 10 Mg/Ml Administered 01/05/22 15:52 Dose 10 mg .ROUTE .STK-MED ONE Sodium Chloride 1,000 mls @ 999 mls/hr 01/05/22 15:46 01/05/22 17:18 Sodium Chloride 0.9% 1000 Ml IV 01/05/22 16:46 Infused .Q1H1M STA Infusion Sodium Chloride Confirm 01/05/22 15:52 Sodium Chloride 0.9% 1000 Ml Administered 01/05/22 15:53 Dose 1,000 mls @ ud .ROUTE .STK-MED ONE Ceftriaxone Sodium/Dextrose Confirm 01/05/22 16:55 Rocephin 1 Gm-D5w 50 Ml Bag Administered 01/05/22 16:56 Dose 1 g in 50 mls @ ud IV .STK-MED ONE Ketorolac Tromethamine 30 mg 01/05/22 15:46 01/05/22 15:53 Ketorolac Tromethamine 30 Mg/Ml Inj IM 01/05/22 15:47 30 mg STAT ONE Administration Ketorolac Tromethamine Confirm 01/05/22 15:51 Ketorolac Tromethamine 30 Mg/Ml Inj Administered 01/05/22 15:52 Dose 30 mg .ROUTE .STK-MED ONE Lab/Rad Data: Laboratory Results 01/05/22 01/05/22 Range/Units 15:45 15:45 Monoscreen NEGATIVE (Negative) Influenza Type A Ag NEGATIVE (NEGATIVE) Influenza Type B Ag NEGATIVE (NEGATIVE) RSV (PCR) NEGATIVE (Negative) SARS-CoV-2 (PCR) NEGATIVE (NEGATIVE) - Progress Progress: improved Progress Note: Patient reassessed. He feels much better. Patient's rapid strep at [facility] was negative. Monospot screen negative in our ED. Influenza RSV and COVID-19 all negative as well. Patient requested treatment for possible STD. Patient declined genitalia examination. The patient requested to receive antibiotics. Although rapid strep was negative there is a significant likelihood of a false negative. In light of negative Monospot and other testing we elected to treat patient empirically. Based on Cent[facility] criteria patient appears to be experiencing findings consistent with strep throat. Patient received a gram of azithromycin and 500 of Rocephin. Patient currently does not have a primary care doctor however he states he is in the process of obtaining a primary care doctor in [place]. We will refer patient to our on-call physician for follow-up as patient currently does not have a primary care doctor. Portions of this note were created with voice recognition technology. There may be grammatical, spelling, punctuation or sound alike errors 01/05/22 17:20 IV fluids infused. Patient currently afebrile. Fever resolved Patient agrees to follow-up with primary care doctor within 48 hours for evaluation. Patient is requesting discharge at this time. 01/05/22 17:28 Counseled pt/family regarding: diagnosis, need for follow-up, rad results - Departure Departure Disposition: Home Clinical Impression: Fever, Pharyngitis, Tonsillar exudate Condition: Stable Critical Care Time: No Referrals: Saba WEST MD [Primary Care Provider] - Follow up/PCP as directed Additional Instructions: Discharge/Care Plan EMILKELLIE BROWN was seen on 01/05/22 in the Emergency Room. The patient was counseled regarding Diagnosis,Lab results, Imaging studies, need for follow up and when to return to the Emergency Room. Prescriptions given: Discharge Note I have spoken with the patient and/or caregivers. I have explained the patient's condition, diagnosis and treatment plan based on the information available to me at this time. I have answered the patient's and/or caregiver's questions and addressed any concerns. The patient and/or caregivers have as good understanding of the patient's diagnosis, condition and treatment plan as can be expected at this point. The vital signs have been stable. The patient's condition is stable and appropriate for discharge from the emergency department. The patient will pursue further outpatient evaluation with the primary care physician or other designated or consulting physician as outlined in the discharge instructions. The patient and/or caregivers are agreeable to this plan of care and follow-up instructions have been explained in detail. The patient and/or caregivers have received these instruction. The patient/and or caregivers are aware that any significant change in condition or worsening of symptoms should prompt an immediate return to this or the closest emergency department or call 911. Prescriptions: Clindamycin HCl 150 mg [Cleocin 150 mg Capsule] 2 cap PO TID 7 Days #42 cap
[2022-01-05 16:42] LABS: INFLUENZA A NEGATIVE (NEGATIVE); INFLUENZA B NEGATIVE (NEGATIVE); RESPIRATORY SYNCTIAL VIRUS NEGATIVE (Negative); SARS-CoV-2 Xpert Express NEGATIVE (NEGATIVE)
[2022-01-05] MEDS ORDERED: Zithromax 250 MG TABLET PO ONE (16:44)
[2022-01-05] MEDS ORDERED: ROCEPHIN 1 Gm-D5w 50 ml Bag** 1 G/50 ML IVPB IV ONE (16:55)
[2022-01-05] MEDS ORDERED: Zithromax 250 MG TABLET ONE (16:55)
[2022-01-05 17:06] VITALS: BP 112/68
[2022-01-06] MEDS ORDERED: ROCEPHIN 1 Gm-D5w 50 ml Bag** 1 G/50 ML IVPB IV SCH (10:00)
== END 2022-01-05 17:39 | disposition home or self-care (01) ==
LOC: ED 15:21
DX: J02.9 Acute pharyngitis, unspecified (principal); R50.9 Fever, unspecified; Z72.0 Tobacco use
CPT/HCPCS: 0241U; 36000; 36415; 86308; 96360; 96372; 96374; 99284; J0696; J1100; J1885; A9270-GY

== ENCOUNTER 2022-10-19 13:49 | Emergency (ER) | payer OTHER ==
--- NOTE | 2022-10-19 14:02 | ERPHSYRPT ---
- History of Present Illness Time Seen by Provider: 10/19/22 14:02 Source: patient Exam Limitations: no limitations Physician History: 27-year-old white male who was brought into the emergency department by law enforcement. He had been wearing wet socks and shoes for several days in a row. He states he had to "peel" the socks off of the bottom of his feet. Patient was being booked in senior living and when they removed the shoes and socks they found the skin pulled away because of "trench foot" immersion foot syndrome. He was brought to the emergency department for evaluation and treatment. Patient admits to consuming alcohol and marijuana. He has been afebrile. Occurred: just prior to arrival Severity of Pain-Max: mild Severity of Pain-Current: mild Lower Extremities Pain: foot: bilateral (Plantar surface) Modifying Factors: Improves With: nothing Allergies/Adverse Reactions: olanzapine Adverse Reaction (Verified 10/19/22 14:07) Hx Tetanus, Diphtheria Vaccination/Date Given: Yes Hx Influenza Vaccination/Date Given: No Hx Pneumococcal Vaccination/Date Given: No Travel Risk - International Travel Have you traveled outside of the country in past 3 weeks: No - Coronavirus Screening Are you exhibiting any of the following symptoms?: No Close contact with a COVID-19 positive Pt in past 14-21 Days: No - Vaccine Status Have you recieved a Covid-19 vaccination: Yes [employer]: [employer] - Vaccination Dates Date of 2cond Vaccination (if applicable): na - Review of Systems Constitutional: No Symptoms Eyes: No Symptoms Ears, Nose, & Throat: No Symptoms Respiratory: No Symptoms Cardiac: No Symptoms Abdominal/Gastrointestinal: No Symptoms Genitourinary Symptoms: No Symptoms Musculoskeletal: No Symptoms Skin: Other (Immersion foot syndrome plantar surfaces of both feet) Neurological: No Symptoms Psychological: No Symptoms Endocrine: No Symptoms Hematologic/Lymphatic: No Symptoms Immunological/Allergic: No Symptoms All Other Systems: Reviewed and Negative - Past Medical History Pertinent Past Medical History: Yes Neurological History: No Pertinent History ENT History: No Pertinent History Cardiac History: No Pertinent History Respiratory History: No Pertinent History Endocrine Medical History: No Pertinent History Musculoskeletal History: No Pertinent History GI Medical History: Hepatitis Psycho-Social History: Anxiety, Bipolar, Depression, Other Other Medical History: "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 HIV, Hepatits and tested multiple times - Past Surgical History Past Surgical History: Yes Neuro Surgical History: No Pertinent History Cardiac: No Pertinent History Respiratory: No Pertinent History Gastrointestinal: No Pertinent History Genitourinary: No Pertinent History Musculoskeletal: No Pertinent History Other Surgical History: RT THUMB DISLOCATION/FX - Social History Smoking Status: Current every day smoker How long have you smoked: 9yrs Exposure to second hand smoke: Yes Drug Use: none Patient Lives Alone: No Significant Family History: no pertinent family hx - Nursing Vital Signs Nursing Vital Signs: Initial Vital Signs Temperature 98.4 F 10/19/22 13:51 Pulse Rate 100 H 10/19/22 13:51 Blood Pressure 140/86 10/19/22 13:51 O2 Sat by Pulse Oximetry 99 10/19/22 13:51 Pain Scale Pain Intensity 8 - Physical Exam General Appearance: no apparent distress, alert, anxiety Eyes, Ears, Nose, Throat Exam: normal ENT inspection, moist mucous membranes Neck Exam: normal inspection, non-tender, supple, full range of motion Cardiovascular/Respiratory Exam: chest non-tender, no respiratory distress Gastrointestinal/Abdominal Exam: non-tender Back Exam: normal inspection, normal range of motion, No CVA tenderness, No vertebral tenderness Hips Exam: bilateral: non-tender, normal inspection, normal range of motion Legs Exam: bilateral leg: non-tender, normal inspection, normal range of motion, no evidence of injury Knees Exam: bilateral knee: non-tender, normal inspection, normal range of motion, no evidence of injury Ankle Exam: bilateral ankle: non-tender, normal inspection, normal range of motion, no evidence of injury Foot Exam: bilateral foot: normal range of motion, soft tissue tenderness (Plantar surface both feet with the juan of chronic blisters), other (No proximal streaking or cellulitis present) Neuro/Tendon Exam: normal sensation, normal motor functions, normal tendon functions, responds to pain, no evidence tendon injury Mental Status Exam: alert, oriented x 3, cooperative Skin Exam: other SpO2 Interpretation: normal O2 Delivery: Room Air - Course Nursing assessment & vital signs reviewed: Yes Ordered Tests: Active Orders 24 hr Category Date Time Status Wound Care STAT Care 10/19/22 14:36 Active Medication Summary Discontinued Medications Generic Name Dose Route Start Last Admin Trade Name Freq PRN Reason Stop Dose Admin Cephalexin HCl 500 mg 10/19/22 14:34 10/19/22 14:40 Cephalexin Mh500 Mg Capsule PO 10/19/22 14:35 500 mg STAT ONE Administration Cephalexin HCl Confirm 10/19/22 14:39 Cephalexin Mh500 Mg Capsule Administered 10/19/22 14:40 Dose 500 mg .ROUTE .STK-MED ONE - Progress Progress: pain not gone completely, re-examined Progress Note: 10/19/22 14:49 This patient's medical issue is 1 of low complexity. This is based on the patient's history of present illness and physical findings on examination. The patient does not need an extensive work-up. The patient has immersion foot syndrome. Discharge plan will include oral Keflex and instructions to use Tylenol and ibuprofen for pain control. He is to keep the feet clean daily with soap and water. He is to cover the wound with antibiotic ointment of choice and nonstick gauze. Counseled pt/family regarding: diagnosis, need for follow-up Medical Desision Making - Discussion of managment Agreed on:: Treatment plan, need for follow-up - Social Determinants of Health Pt's dx & treatment plan are significantly limited by SDOH: Unemployed, financial hardships, housing insecurity, homelessness, limited education - Risk of complications The pt has a mod risk of morbidity or mortality based on: Need for prescription drug management - Departure Departure Disposition: Fdc/Custodial Clinical Impression: Immersion foot, left foot, initial encounter, Immersion foot, right foot, initial encounter Condition: Stable Critical Care Time: No Referrals: Saba WEST MD [Primary Care Provider] - Follow up/PCP as directed Additional Instructions: Keep bilateral foot wounds clean daily with soap and water. Cover the wound with antibiotic ointment of choice, nonstick gauze, 4 x 4's and tape. Change the dressing as needed. Take the antibiotics as prescribed. Use ibuprofen and Tylenol for pain control. Prescriptions: Cephalexin Mh 500 mg [Keflex 500 mg] 500 mg PO TID #21 cap
[2022-10-19 14:06] VITALS: BP 140/86; PULSE 100; O2SAT 99
[2022-10-19] MEDS ORDERED: KEFLEX 500 MG PO ONE (14:34)
[2022-10-19] MEDS ORDERED: KEFLEX 500 MG ONE (14:39)
== END 2022-10-19 15:08 | disposition home or self-care (01) ==
LOC: ED 13:49
DX: T69.022A Immersion foot, left foot, initial encounter (principal); T69.021A Immersion foot, right foot, initial encounter; Z72.0 Tobacco use; Z59.00 Homelessness unspecified; Z56.0 Unemployment, unspecified; Z59.9 Problem related to housing and economic circumstances, unspecified; Z55.9 Problems related to education and literacy, unspecified
CPT/HCPCS: 99282; A9270-GY